=== PATIENT | male | born 1990 | race Caucasian/White ===

== ENCOUNTER 2017-05-28 10:00 | Emergency (ER) | payer OTHER ==
[~2017-05-28] VITALS: Ht 162.6 cm; Wt 112.2 kg
[2017-05-28 10:07] VITALS: TEMP 36.7; Ht 162.6 cm; Wt 112.2 kg
[2017-05-28] MEDS ORDERED: BUPRTAB51 PO (10:42)
[2017-05-28] MEDS ORDERED: CITA20TA9 PO (10:42)
[2017-05-28] MEDS ORDERED: AMPH15CA7 PO (10:42)
[2017-05-28] MEDS ORDERED: CEPH500C PO (11:18)
--- NOTE | 2017-05-28 11:19 | EMERGENCY ROOM VISIT NOTE ---
ED Visit Note First contact with patient: 10:25 CHIEF COMPLAINT: Facial laceration HISTORY OF PRESENT ILLNESS: This 26-year-old male patient presents to the emergency department approximately one hour after cutting his face while at work. The patient was attempting to move a monitor and did not realize it was spring loaded. When he pulled on the monitor, it struck him in the face, just above the nose. The bleeding stopped shortly after the injury and there is no weakness or numbness of the area. Tetanus shot is up-to-date. The patient denies headache, change in vision, loss of consciousness, dizziness, confusion, or other associated neurological symptoms. The patient did apply ice and direct pressure immediately, and states the bleeding was easily controlled. The patient denies any significant pain. REVIEW OF SYSTEMS: A 6 system review of systems was completed with positives and pertinent negatives listed in the HPI. ALLERGIES: Sulfa MEDICATIONS: Adderall, Wellbutrin, Celexa PMH: ADHD, anxiety, depression SOCIAL HISTORY: The patient lives locally with family. He denies drug, alcohol , tobacco use. PHYSICAL EXAM: Vital Signs: Reviewed Nurse's notes, vital signs stable. GENERAL : This is a 26-year-old white male, in no acute distress, well-developed, well- nourished. SKIN: There are 2, superficial, 1 cm long lacerations on the face, 1 between the eyebrows, and one over the bridge of the nose. There is also a bruise on the upper right eyelid with a very small, superficial puncture wound. The lacerations are superficial and the edges only mildly gape apart with traction, but lay well without traction. The lacerations do appear to be partial avulsions of the layers of skin. There is no foreign material in the wound and it looks clean. There is no active bleeding. No deep structures such as tendons or nerves are seen in the base of the wound. Sensation to pain and light touch is intact. EMERGENCY DEPARTMENT COURSE: I examined the patient. I did discuss options including dermabond vs. sutures. The lacerations are superficial and more of partial avulsions/skin tears vs deep lacerations. The patient is in agreement that Dermabond is an acceptable treatment method. Verbal consent was obtained to perform the procedure. The lacerations were cleaned with betadine and sterile saline and there was no bleeding. The edges of the laceration were approximated and secured with 3 layers of Dermabond glue with good wound approximation. The patient tolerated the procedure well. The patient was instructed to follow-up with his worker's compensation providers in 1-2 days for re-check. He was started on antibiotics prophylactically due to the small puncture wound on the eyelid. The patient was discharged home in stable condition. I attest that I have personally reviewed the patient's current medication list. Patient was found to have normal blood pressure on screening and does not require follow-up. DIFFERENTIAL DIAGNOSIS: Laceration, contusion, skull fracture, concussion, head injury, intracranial hemorrhage, infection, and others DIAGNOSIS: Facial lacerations Current/Historical Medications Scheduled Amphetamine-Dextroamphetamine 15MG (Adderall Xr 15MG), 15 MG PO DAILY Bupropion (Wellbutrin-Xl), 300 MG PO DAILY Cephalexin Monohydrate (Keflex), 500 MG PO TID Citalopram Hydrobromide (Celexa), 20 MG PO DAILY Allergies Coded Allergies: Sulfa Antibiotics (Unverified Allergy, Unknown, CHILDHOOD ALLERGY, 05/28/17) Vital Signs Date Time Temp Pulse Resp B/P (MAP) Pulse Ox O2 Delivery O2 Flow Rate FiO2 05/28/17 11:43 94 20 149/71 96 05/28/17 10:07 36.7 110 18 153/61 97 Room Air Departure Information Impression Primary Impression: Facial laceration Dispostion Home / Self-Care Condition GOOD Prescriptions Cephalexin Monohydrate (Keflex) 500 Mg Cap 500 MG PO TID for 5 Days, #15 CAP Prov: Cheri Carranza PA-C 05/28/17 Forms HOME CARE DOCUMENTATION FORM, Days off work: 2 Work Instructions, Return To Work: 2 days IMPORTANT VISIT INFORMATION Patient Instructions ED Laceration Facial Skin Glue, My [facility] Additional Instructions Read DermaBond handout. Cephalexin(Keflex) 500mg: Take one pill three times daily for 5 days to prevent skin infection. All antibiotics can cause diarrhea. If this occurs and you feel worse or it does not resolve in 1-2 days follow up with your doctor or return to the Emergency Department as this could be signs of serious underlying problems. Any medication can cause an allergic reaction, stop the pills immediately and return to the ER for rash, hives, breathing difficulties, or swelling. Ice and elevate for swelling and pain. Ibuprofen 600 mg and Tylenol 1000 mg every 6 hrs for pain. Return for any signs of infection (increasing redness, swelling, drainage, fever). Keep covered when in sun until fully healed then SPF 50 or higher for one year. Vitamin E oil if desired two weeks after fully healed for reduction of scar. Follow-up with your Worker's Compensation provider in 2-3 days for wound re- check and further management. Return to the ED for redness, swelling, increased pain, pus-like drainage, or other concerning symptoms. Work Instructions Return To Work: 1 day Problem Qualifiers Primary Impression: Facial laceration Encounter type: initial encounter Qualified Codes: S01.81XA - Laceration without foreign body of other part of head, initial encounter
[2017-05-28 11:43] VITALS: BP 149/71; PULSE 94; O2SAT 96
== END 2017-05-28 11:45 | disposition home or self-care (01) ==
LOC: C.EDB 10:02 → C.EDC 11:45
DX: S01.81XA Laceration without foreign body of other part of head, initial encounter (principal); W45.8XXA Other foreign body or object entering through skin, initial encounter; Y92.89 Other specified places as the place of occurrence of the external cause; Y99.0 Civilian activity done for income or pay; F90.9 Attention-deficit hyperactivity disorder, unspecified type; F41.9 Anxiety disorder, unspecified; F43.9 Reaction to severe stress, unspecified; Z79.899 Other long term (current) drug therapy; Z88.2 Allergy status to sulfonamides